=== PATIENT | male | born 1970 | race Caucasian/White ===

== ENCOUNTER 2023-11-01 08:33 | Emergency (ER) | payer OTHER ==
[~2023-11-01] VITALS: Ht 182.9 cm; Wt 83.6 kg
[2023-11-01 08:40] VITALS: BP 133/83
[2023-11-01 08:45] VITALS: BP 124/77
[2023-11-01 09:30] VITALS: BP 140/89
[2023-11-01 09:42] VITALS: BP 140/89
[2023-11-01] MEDS ORDERED: HYDROCO/APAP1 TA9 PO (10:03)
== END 2023-11-01 09:48 | disposition home or self-care (01) | DRG 206 ==
LOC: ED 08:33
DX: S22.32XA Fracture of one rib, left side, initial encounter for closed fracture (principal); S20.212A Contusion of left front wall of thorax, initial encounter; W01.198A Fall on same level from slipping, tripping and stumbling with subsequent striking against other object, initial encounter; Y92.009 Unspecified place in unspecified non-institutional (private) residence as the place of occurrence of the external cause